=== PATIENT | female | born 1985 | race Two or more races ===

== ENCOUNTER 2022-11-06 08:47 | Outpatient (CLI) | payer OTHER | END 2022-11-06 17:15 | disposition home or self-care (01) | LOC: PRENATAL 08:47 | PROVIDERS: ATTEND Obstetrics & Gynecology Maternal & Fetal Medicine | DX: O36.80X0 Pregnancy with inconclusive fetal viability, not applicable or unspecified (principal); O09.529 Supervision of elderly multigravida, unspecified trimester; Z36.9 Encounter for antenatal screening, unspecified; O99.342 Other mental disorders complicating pregnancy, second trimester; Z3A.14 14 weeks gestation of pregnancy ==

== ENCOUNTER 2022-11-08 21:26 | Emergency (ER) | payer OTHER ==
[~2022-11-08] VITALS: Ht 154.9 cm; Wt 84.4 kg
[2022-11-08] MEDS ORDERED: VISTARIL50 MG PO (22:14)
== END 2022-11-09 00:23 | disposition home or self-care (01) ==
LOC: ER 21:26
DX: O16.2 Unspecified maternal hypertension, second trimester (principal); Z3A.14 14 weeks gestation of pregnancy; Z88.6 Allergy status to analgesic agent

== ENCOUNTER 2022-12-18 11:14 | Outpatient (CLI) | payer OTHER ==
[~2022-12-18 11:14] MED LIST: VISTARIL50 MG PO
== END 2022-12-18 15:28 | disposition home or self-care (01) ==
LOC: PRENATAL 11:14
PROVIDERS: ATTEND Obstetrics & Gynecology Maternal & Fetal Medicine
DX: O35.3XX0 Maternal care for (suspected) damage to fetus from viral disease in mother, not applicable or unspecified (principal); O44.00 Complete placenta previa NOS or without hemorrhage, unspecified trimester; O09.529 Supervision of elderly multigravida, unspecified trimester; O99.342 Other mental disorders complicating pregnancy, second trimester; O99.210 Obesity complicating pregnancy, unspecified trimester; Z3A.20 20 weeks gestation of pregnancy

== ENCOUNTER 2023-01-04 14:04 | Outpatient (CLI) | payer OTHER ==
[2023-01-04 15:16] LABS: PH,URINE 7.5 (5.0-8.0); URINE APPEARANCE Clear; URINE BILIRRUBIN Negative (NEGATIVE); URINE BLOOD Negative; URINE COLOR Yellow; URINE GLUCOSE Negative (NEGATIVE); URINE LEUKOCYTE Negative; URINE NITRATE Negative; URINE PROTEIN Negative (NEGATIVE); URINE UROBILINOGEN 0.2 E.U./dl
[2023-01-04 15:20] LABS: URINE BACTERIA 11.3 uL (0.0-1933); URINE EPITHELIAL CELLS 87.7 uL (0.0-38.8); URINE RBC 2.1 uL (0.0-20.8); URINE WBC 4.9 uL (0.0-23.2)
[2023-01-04 15:23] LABS: HEMATOCRIT 36.7 % (36.0-45.00); HEMOGLOBIN 12.4 g/dL (12.0-15.00); MEAN CELL VOLUME 85.4 fL (80.00-100.00); MEAN CORPUSCULAR HEMOGLOBIN 28.8 pg (27.00-32.0); MEAN CORPUSCULAR HGB CONC 33.7 g/dl (32.0-36.0); PLATELET COUNT 286 K/uL (150-450); RED CELL DISTRIBUTION WIDTH 13.7 % (11.5-14.5)
== END 2023-01-05 15:02 | disposition home or self-care (01) ==
LOC: OBS/DEL 14:04
PROVIDERS: ATTEND Obstetrics & Gynecology Obstetrics
DX: O23.32 Infections of other parts of urinary tract in pregnancy, second trimester (principal); N39.0 Urinary tract infection, site not specified; Z3A.22 22 weeks gestation of pregnancy; Z88.6 Allergy status to analgesic agent

== ENCOUNTER 2023-03-12 10:19 | Outpatient (CLI) | payer OTHER ==
[~2023-03-12 10:19] MED LIST changes: +CEFADROXIL500 MG PO
== END 2023-03-12 10:20 | disposition home or self-care (01) ==
LOC: PRENATAL 10:19
PROVIDERS: ATTEND Obstetrics & Gynecology Maternal & Fetal Medicine
DX: O26.849 Uterine size-date discrepancy, unspecified trimester (principal); O36.8199 Decreased fetal movements, unspecified trimester, other fetus; O09.529 Supervision of elderly multigravida, unspecified trimester; O99.343 Other mental disorders complicating pregnancy, third trimester; O99.210 Obesity complicating pregnancy, unspecified trimester; Z3A.32 32 weeks gestation of pregnancy

== ENCOUNTER 2023-04-15 20:52 | Inpatient (IN) | payer OTHER ==
[~2023-04-15] VITALS: Ht 154.9 cm; Wt 88.0 kg
[2023-04-15] MEDS ORDERED: PRENATAL + DHA1 EAC1 PO (21:31)
[2023-04-15 21:33] LABS: HEMATOCRIT 37.5 % (36.0-45.00); HEMOGLOBIN 13.1 g/dL (12.0-15.00); MEAN CELL VOLUME 85.7 fL (80.00-100.00); MEAN CORPUSCULAR HEMOGLOBIN 29.9 pg (27.00-32.0); MEAN CORPUSCULAR HGB CONC 34.9 g/dl (32.0-36.0); PLATELET COUNT 249 K/uL (150-450); RED BLOOD COUNT 4.38 M/uL (4.00-6.00); RED CELL DISTRIBUTION WIDTH 14.2 % (11.5-14.5)
[2023-04-15 21:36] LABS: PH,URINE 5.5 (5.0-8.0); URINE APPEARANCE Clear; URINE BILIRRUBIN Negative (NEGATIVE); URINE BLOOD Negative; URINE COLOR Yellow; URINE GLUCOSE Negative (NEGATIVE); URINE LEUKOCYTE Negative; URINE NITRATE Negative; URINE PROTEIN Negative (NEGATIVE); URINE UROBILINOGEN 0.2 E.U./dl
[2023-04-15 21:39] LABS: URINE BACTERIA 16.3 uL (0.0-1933); URINE EPITHELIAL CELLS 8.6 uL (0.0-38.8); URINE WBC 2.3 uL (0.0-23.2)
[2023-04-15 21:40] LABS: URINE RBC 0.5 uL (0.0-20.8)
[2023-04-15 21:52] LABS: INR < 0.93; PARTIAL THROMBOPLASTIN TIME 24.8 SECONDS (22.0-34.0); PROTHROMBIN TIME 9.3 SECONDS (9.0-11.5)
[2023-04-15 21:57] LABS: BILIRUBIN TOTAL 0.33 mg/dL (0.3-1.2); CALCIUM 9.5 mg/dL (8.5-10.1); CREATININE SERUM 0.81 mg/dL (0.55-1.02); GLOBULINA 3.5 G/DL (2.4-3.5); POTASSIUM 4.09 mEq/L (3.5-5.1); TOTAL PROTEIN 6.5 gm/dL (6.4-8.2)
[2023-04-16 22:20] LABS: URINE PROT QUANT 24HR 6.9 MG/DL
[2023-04-16 22:26] LABS: URINE PROT QUANT 24 HR 108.68 MG/24HR (42-225)
== END 2023-04-17 15:08 | disposition home or self-care (01) | DRG 833 ==
LOC: LDR 20:52
PROVIDERS: ADMIT Obstetrics & Gynecology Obstetrics; ATTEND Obstetrics & Gynecology Obstetrics
PROC: 4A1HXCZ Monitoring of Products of Conception, Cardiac Rate, External Approach (ICD-10-PCS; principal; 2023-04-15)
PROC: BY4CZZZ Ultrasonography of Second Trimester, Single Fetus (ICD-10-PCS; 2023-04-15)
DX: O14.03 Mild to moderate pre-eclampsia, third trimester (principal); Z3A.37 37 weeks gestation of pregnancy